=== PATIENT | female | born 1945 | race Caucasian/White ===

== ENCOUNTER → 2016-11-03 | Outpatient (CLI) | payer MEDICARE, OTHER ==
[~2016-11-03] MED LIST: ALBUTEROL SULFATE 2.5 MG/3 ML VIAL NEB ONE
== END | disposition home or self-care (01) ==
LOC: RESP 09:40
PROVIDERS: ATTEND Family Medicine
DX: J45.20 Mild intermittent asthma, uncomplicated (principal)
CPT/HCPCS: 94060; J7611

== ENCOUNTER → 2016-11-06 | Outpatient (CLI) | payer MEDICARE, OTHER | END | disposition home or self-care (01) | LOC: GMAB 14:34 | PROVIDERS: ATTEND Family Medicine | DX: J45.22 Mild intermittent asthma with status asthmaticus (principal) ==

== ENCOUNTER → 2016-12-26 | Outpatient (CLI) | payer MEDICARE, OTHER | END | disposition home or self-care (01) | LOC: GMAB 10:37 | PROVIDERS: ATTEND Family Medicine | DX: I10 Essential (primary) hypertension (principal) ==

== ENCOUNTER 2017-01-24 05:27 | Day surgery (SDC) | payer MEDICARE, OTHER ==
[2017-01-24] MEDS ORDERED: LACTATED RINGERS 1,000 ML ONE (07:15)
--- NOTE | 2017-01-24 08:46 | OP ---
DATE OF PROCEDURE: 01/24/17 PREOPERATIVE DIAGNOSIS: 1. Abnormal barium swallow with retention of barium pill. 2. Dysphagia. 3. Gastroesophageal reflux status post Gordy fundoplication. POSTOPERATIVE DIAGNOSIS: 1. Aborted EGD to the upper esophageal sphincter due to laryngeal spasm. PROCEDURE: 1. Esophagogastroduodenoscopy. SURGEON: Agustín Valenzuela MD. ANESTHESIA: MAC. PROCEDURE: Informed consent was obtained prior to sedation. The preprocedure cardiopulmonary assessment was satisfactory. The patient was placed in the left lateral decubitus and was sedated by the Anesthesia Team. The tip of the Olympus gastroendoscope was inserted in the oropharynx and guided with intent to pass through the cricopharyngeus. The scope was advanced into the upper esophageal sphincter. This was not transversed due to laryngeal spasm. The scope was then withdrawn from the patient at this time. Examination of the epiglottis and upper airway showed evidence of erythema prior to scope insertion. The scope was withdrawn from the patient and lidocaine was administered for laryngeal spasm, which resolved successfully. At this time, the procedure was terminated. RECOMMENDATION: 1. Avoid all tobacco products. 2. Followup with Dr. White. 3. Refer to pulmonary for medical optimization of asthma. 4. Consider further studies once cleared by pulmonary after propr medical optimization. 5. Followup with me in 4 to 6 weeks. #[id number] #[id number] [facility]
[2017-01-24 09:18] VITALS: BP 112/74; TEMP 98.6; O2SAT 95
[2017-01-24] MEDS ORDERED: PROPOFOL 200 MG/20 ML VIAL IV ONE (12:00)
== END 2017-01-24 09:00 | disposition home or self-care (01) ==
LOC: AMB 05:27
DX: K21.9 Gastro-esophageal reflux disease without esophagitis (principal); J38.5 Laryngeal spasm; I10 Essential (primary) hypertension; J45.909 Unspecified asthma, uncomplicated; Z79.899 Other long term (current) drug therapy
CPT/HCPCS: 00740; 43235; J3490; J7120

== ENCOUNTER → 2017-04-09 | Outpatient (CLI) | payer MEDICARE, OTHER | LOC: LAB.O 15:05 | DX: J45.909 Unspecified asthma, uncomplicated (principal); R05 Cough; Z01.811 Encounter for preprocedural respiratory examination ==

== ENCOUNTER → 2018-01-02 | Outpatient (CLI) | payer MEDICARE, OTHER | LOC: GMAB 10:22 | PROVIDERS: ATTEND Family Medicine | DX: D50.9 Iron deficiency anemia, unspecified (principal); E53.8 Deficiency of other specified B group vitamins; I10 Essential (primary) hypertension ==

== ENCOUNTER 2018-01-20 20:55 | Emergency (ER) | payer MEDICARE, OTHER ==
[2018-01-20 21:23] VITALS: O2SAT 98
--- NOTE | 2018-01-20 21:31 | ED.PDOC ---
History of Present Illness - General Chief Complaint: Bite: Animal/Insect/Human Stated Complaint: dog bite Time Seen by Provider: 01/20/18 21:17 Source: patient Exam Limitations: no limitations - History of Present Illness Initial Comments: Sneha Vargas 73 y/o female stated that her neighbors dog jumped over her fence while she was on her backyard tried to run on seeing the dog but was chased and bitten on her right leg with skin laceration.She was wearing long pants.Animal control went to look for the dog after incident. Timing/Duration: just prior to arrival Severity: moderate Location: extremities - right leg Improving Factors: nothing Worsening Factors: movement Associated Symptoms: denies symptoms, other - see hpi Allergies/Adverse Reactions: Allergies NO KNOWN ALLERGY Allergy (Verified 08/25/13 15:58) Home Medications: Ambulatory Orders Olmesartan Medoxomil [Benicar] 40 mg PO DAILY 06/22/14 Clonidine HCl 01/24/17 DULoxetine HCL [Cymbalta] 20 mg PO 01/24/17 Amoxicillin & Pot Clavulanate [Augmentin Tab] 500 mg PO BID #20 tablet 01/20/18 Amoxicillin [Amoxil] 500 mg PO BID #20 cap 01/20/18 Rivastigmine 9.5MG/24Hr Patch [Exelon 9.5mg/24hr Patch] 01/20/18 Review of Systems - Review of Systems Constitutional: States: no symptoms reported EENTM: States: no symptoms reported Respiratory: States: no symptoms reported Cardiology: States: no symptoms reported Skin: States: see HPI All other Systems: Reviewed and Negative, No Change from Baseline Past Medical History (General) - Patient Medical History Hx Seizures: No Hx Stroke: No Hx Asthma: No Hx of COPD: No Hx Cardiac Disorders: No Hx Congestive Heart Failure: No Hx Pacemaker: No Hx Hypertension: Yes Hx Diabetes: No Hx Cancer: No Hx Hepatitis C: No Hx MRSA: No Surgical History: other - hernia repair - Vaccination History Hx Tetanus, Diphtheria Vaccination: No Hx Influenza Vaccination: No Hx Pneumococcal Vaccination: No - Social History Hx Tobacco Use: No Hx Chewing Tobacco Use: No Hx Alcohol Use: No Hx Substance Use: No Hx Substance Use Treatment: No Hx Depression: No Hx Physical Abuse: No Hx Emotional Abuse: No Hx Suspected Abuse: No - Female History Patient : No Family Medical History - Family History Mother Family History: Unknown Living Status: Physical Exam - Physical Exam General Appearance: Alert, Comfortable, No apparent distress Eyes, Ears, Nose, Throat Exam: normal ENT inspection Neck: supple Cardiovascular/Chest: normal peripheral pulses, regular rate, rhythm, no murmur Respiratory: lungs clear, normal breath sounds Gastrointestinal/Abdominal: non tender, soft Back Exam: normal inspection Extremity: no pedal edema, no calf tenderness Neurologic: alert, oriented x 3 Skin Exam: warm/dry, normal color Skin Problem Location: lower extremities - right leg Skin Character: other - skin laceration Progress - Progress Progress: 01/20/18 21:33 Vital Signs - 8 hr 01/20/18 21:19 Temperature 97.8 F Pulse Rate [ 68 Right] Respiratory 18 Rate Blood Pressure 130/64 [Left Arm] O2 Sat by Pulse 98 Oximetry Departure - Departure Clinical Impression: Minor skin laceration Dog bite of right lower leg Qualifiers: Encounter type: initial encounter Qualified Code(s): S81.851A - Open bite, right lower leg, initial encounter; W54.0XXA - Bitten by dog, initial encounter Time of Disposition: 21:36 Disposition: Discharge to Home or Self Care Departure Forms: ED Discharge - Pt. Copy, Patient Portal Self Enrollment Instructions: DI for Animal Bites, DI for Dog Bite Referrals: Michael White MD [Primary Care Provider] - 1-2 Weeks Prescriptions: Amoxicillin [Amoxil] 500 mg PO BID #20 cap Amoxicillin & Pot Clavulanate [Augmentin Tab] 500 mg PO BID #20 tablet Home Medications: Ambulatory Orders Olmesartan Medoxomil [Benicar] 40 mg PO DAILY 06/22/14 Clonidine HCl 01/24/17 DULoxetine HCL [Cymbalta] 20 mg PO 01/24/17 Amoxicillin & Pot Clavulanate [Augmentin Tab] 500 mg PO BID #20 tablet 01/20/18 Amoxicillin [Amoxil] 500 mg PO BID #20 cap 01/20/18 Rivastigmine 9.5MG/24Hr Patch [Exelon 9.5mg/24hr Patch] 01/20/18 Additional Instructions: Return to ER as needed;Follow up with primary Md as needed
[2018-01-20] MEDS ORDERED: AMOXICILLIN & POT CLAVULANATE 875 MG TAB PO ONE (21:33)
[2018-01-20] MEDS ORDERED: TETANUS,DIPHTHERIA,PERTUSSIS 1 EA SYG IM ONE (21:33)
[2018-01-20] MEDS ORDERED: AMOXICILLIN 500 MG CAP PO ONE (21:34)
[2018-01-20] MEDS ORDERED: NEOMYCIN-BACITRACIN-POLYMYXIN 0.9 GM UD TOP ONE (21:44)
[2018-01-20 21:59] VITALS: BP 137/68; TEMP 97.2
== END 2018-01-20 21:58 | disposition home or self-care (01) ==
LOC: ER 20:55
DX: S81.851A Open bite, right lower leg, initial encounter (principal); I10 Essential (primary) hypertension; Z23 Encounter for immunization; W54.0XXA Bitten by dog, initial encounter; Y92.007 Garden or yard of unspecified non-institutional (private) residence as the place of occurrence of the external cause

== ENCOUNTER 2018-08-29 22:17 | Emergency (ER) | payer MEDICARE, OTHER ==
[2018-08-29] MEDS ORDERED: IPRATROPIUM/ALBUTEROL 3 ML VIAL NEB ONE (22:45)
[2018-08-29] MEDS ORDERED: diazePAM 2 MG TAB PO ONE (22:45)
--- NOTE | 2018-08-29 23:32 | ED.PDOC ---
History of Present Illness - General Chief Complaint: Blood Pressure Problem Stated Complaint: elevated blood pressure Time Seen by Provider: 08/29/18 22:19 Source: patient Exam Limitations: no limitations - History of Present Illness Initial Comments: the patient is a 73-year-old female presenting to the emergency room secondary to hypertension that essentially seems despite nightly for her. The patient has been taking clonidine 1 tablet a day almost every night due to blood pressure spike. No altered mental status. No fever. No nuchal rigidity. She just started taking labetalol today that was written for her by her public aid eligibility assistant. She reports a systolic blood pressure of around 200 checked at night. The time she arrived here her systolics were down into the 160s and then proceeded on down into the 130s. The patient was obviously very anxious.she has also recently had a little bit of cough and a little bit of shortness of breath. She does have some history of COPD versus asthma. She does have scattered wheezes currently. Timing/Duration: 1-3 hours Severity: moderate Improving Factors: nothing Worsening Factors: nothing Associated Symptoms: headaches Allergies/Adverse Reactions: Allergies NO KNOWN ALLERGY Allergy (Verified 08/25/13 15:58) Home Medications: Ambulatory Orders Olmesartan Medoxomil [Benicar] 40 mg PO DAILY 06/22/14 Clonidine HCl 01/24/17 DULoxetine HCL [Cymbalta] 20 mg PO 01/24/17 Amoxicillin & Pot Clavulanate [Augmentin Tab] 500 mg PO BID #20 tablet 01/20/18 Amoxicillin [Amoxil] 500 mg PO BID #20 cap 01/20/18 Rivastigmine 9.5MG/24Hr Patch [Exelon 9.5mg/24hr Patch] 01/20/18 Review of Systems - Review of Systems Constitutional: States: no symptoms reported EENTM: States: no symptoms reported Respiratory: States: cough, short of breath Cardiology: States: no symptoms reported Gastrointestinal/Abdominal: States: no symptoms reported Genitourinary: States: no symptoms reported Musculoskeletal: States: no symptoms reported Skin: States: no symptoms reported Neurological: States: headache Endocrine: States: no symptoms reported All other Systems: No Change from Baseline Past Medical History (General) - Patient Medical History Hx Seizures: No Hx Stroke: No Hx Asthma: No Hx of COPD: No Hx Cardiac Disorders: No Hx Congestive Heart Failure: No Hx Pacemaker: No Hx Hypertension: Yes Hx Diabetes: No Hx Cancer: No Hx Hepatitis C: No Hx MRSA: No Surgical History: Hysterectomy - Vaccination History Hx Tetanus, Diphtheria Vaccination: Yes Hx Influenza Vaccination: No Hx Pneumococcal Vaccination: Yes - Social History Hx Tobacco Use: No Hx Chewing Tobacco Use: No Hx Alcohol Use: Yes - social Hx Substance Use: No Hx Substance Use Treatment: No Hx Depression: No Hx Physical Abuse: No Hx Emotional Abuse: No Hx Suspected Abuse: No - Female History Patient : No Family Medical History - Family History Mother Family History: Unknown Living Status: Physical Exam - Physical Exam General Appearance: Alert, Anxious, No apparent distress Eye Exam: bilateral normal Ears, Nose, Throat: hearing grossly normal, normal ENT inspection, normal pharynx Neck: full range of motion, supple Respiratory: no respiratory distress, no accessory muscle use, wheezing - cattered wheezes Cardiovascular/Chest: normal peripheral pulses, regular rate, rhythm, no edema Peripheral Pulses: radial,right: 2+, radial,left: 2+ Gastrointestinal/Abdominal: non tender, soft Rectal Exam: deferred Back Exam: normal inspection, no CVA tenderness, no vertebral tenderness Extremity: normal range of motion, non-tender, normal inspection, no pedal edema , normal capillary refill 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 It is possible the clonidine that she has been taking each night is causing her to have some rebound hypertension. She has just started taking the labetalol and she does need to continue with that twice daily, and hopefully wean off the clonidine. Additionally the patient does appear to have some reactive airway issues currently. She should get her proventil prescription filled that she already has and use it as needed. Blood pressures have come down and her headache is improving. She needs to follow back up with her primary care doctor early next week. ER warnings were given. Departure - Departure Clinical Impression: Uncontrolled hypertension Reactive airway disease Qualifiers: Asthma severity: mild Asthma persistence: intermittent Asthma complication type : with acute exacerbation Qualified Code(s): J45.21 - Mild intermittent asthma with (acute) exacerbation Disposition: Discharge to Home or Self Care Condition: Fair Departure Forms: ED Discharge - Pt. Copy, Patient Portal Self Enrollment Instructions: DI for High Blood Pressure, Asthma, Adult (DC) Diet: regular diet Activity: increase activity as tolerated Referrals: Michael White MD [Primary Care Provider] - 1-5 Days Home Medications: Ambulatory Orders Olmesartan Medoxomil [Benicar] 40 mg PO DAILY 06/22/14 Clonidine HCl 01/24/17 DULoxetine HCL [Cymbalta] 20 mg PO 01/24/17 Amoxicillin & Pot Clavulanate [Augmentin Tab] 500 mg PO BID #20 tablet 01/20/18 Amoxicillin [Amoxil] 500 mg PO BID #20 cap 01/20/18 Rivastigmine 9.5MG/24Hr Patch [Exelon 9.5mg/24hr Patch] 01/20/18 Additional Instructions: the patient is a 73-year-old female presenting to the emergency room secondary to nightly hypertension which corresponded tonight with a moderate headache. It is possible the clonidine that she has been taking each night is causing her to have some rebound hypertension. She has just started taking the labetalol and she does need to continue with that twice daily, and hopefully wean off the clonidine. Additionally the patient does appear to have some reactive airway issues currently. She should get her proventil prescription filled that she already has and use it as needed. Blood pressures have come down and her headache is improving. She needs to follow back up with her primary care doctor early next week. ER warnings were given.
[2018-08-30 00:43] VITALS: BP 147/58; TEMP 97.8; O2SAT 96
== END 2018-08-29 23:40 | disposition home or self-care (01) ==
LOC: ER 22:17
DX: I10 Essential (primary) hypertension (principal); J45.21 Mild intermittent asthma with (acute) exacerbation
CPT/HCPCS: 94640; J7620

== ENCOUNTER → 2018-10-09 | Outpatient (CLI) | payer MEDICARE, OTHER | LOC: YCFC.O 11:49 | PROVIDERS: ATTEND Family Medicine | DX: Z00.00 Encounter for general adult medical examination without abnormal findings (principal); R51 Headache; I10 Essential (primary) hypertension ==

== ENCOUNTER → 2018-10-14 | Outpatient (CLI) | payer MEDICARE, OTHER ==
--- NOTE | 2018-10-14 14:50 | MRI ---
EXAM DESCRIPTION: Brain w/wo Contrast: Magnetic Resonance Imaging. CLINICAL HISTORY: 73 years Female UNSPECIFIED DEMENTIA WITHOUT BEHAVIORAL DISTURBANCE COMPARISON: MRI scan of the brain without contrast 12/17/2015. TECHNIQUE: Multiplanar, high-field MRI, multiple conventional sequences, without and with gadolinium IV contrast. No adverse reactions. Multiple axial diffusion sequences. FINDINGS: Bilateral confluent hyperintense FLAIR and T2-weighted signal in the periventricular white matter. Slightly more in the left cerebrum. Multifocal hyperintense FLAIR and T2-weighted signal in the slightly more on the left than the right. Rios-white matter junctions of the cerebral hemispheres. These lesions are not associated with hemorrhage, abnormal contrast enhancement, cerebral edema, or diffusion restriction. Normal signal in the bilateral basal ganglia. No hemorrhage, no cerebral edema, no diffusion restriction. Normal contrast enhancement. Normal signal in the brainstem. Right cerebellar hemisphere larger than the left. No hemorrhage, no cerebral edema, no mass-effect. Normal contrast enhancement. Large arachnoid cysts and or cisterna magna, posterior fossa left more than right. No contrast enhancement. Concordance of the diffusion and non-diffusion sequences with no evidence of acute or subacute infarction. Cortical sulci, ventricles, and other CSF spaces, and the subdural spaces are normally configured for patients age.. No effacement or displacement. No midline shift. No extra-axial hemorrhage. Normal contrast enhancement. Normal flow signal void in the major vessels of the [place], and the venous sinuses. Arachnoid villi in the bilateral transverse sinuses. IACs are symmetric bilaterally. Fluid signal in some of the left mastoid air cells. No mass effect in the bilateral cerebellopontine angles. Normal contrast enhancement. Facial structures are partially obscured by metallic susceptibility artifact from maxillary dental hardware left more than right. Pituitary gland occupies most of the sella. Normal contrast enhancement. Base of the cerebellar tonsils is above the foramen magnum. Difficult to evaluate the paranasal sinuses. Due to artifact described above. The bony calvarium is intact. IMPRESSION: 1. No intra-axial or extra-axial hemorrhage. No abnormal contrast enhancement. Confluent white matter lesions in the periventricular regions left more than right and multiple small foci of similar signal in the subcortical white matter left more than right. This may have slightly progressed since the prior study. Not associated with hemorrhage, mass effect, cerebral edema, abnormal contrast enhancement, or diffusion restriction. 2. No diffusion restriction elsewhere in the brain. No evidence of acute or subacute infarction or significant ischemia. Stable since the prior study. 3. Cisterna magna and arachnoid cysts in the posterior fossa in the midline into the left of midline with the left cerebellar hemisphere smaller than the right. No abnormal contrast enhancement. Stable since the prior study. 4. Mild mastoiditis on the left. Electronically signed by: Marcos Kemp MD 10/14/2018 2:49 PM [facility]
== END ==
LOC: MRI 08:42
PROVIDERS: ATTEND Family Medicine
DX: F03.90 Unspecified dementia, unspecified severity, without behavioral disturbance, psychotic disturbance, mood disturbance, and anxiety (principal); H70.92 Unspecified mastoiditis, left ear; G93.0 Cerebral cysts

== ENCOUNTER → 2018-12-08 | Outpatient (CLI) | payer MEDICARE, OTHER | LOC: SL 19:44 | PROVIDERS: ATTEND Family Medicine | DX: G47.30 Sleep apnea, unspecified (principal) ==

== ENCOUNTER → 2019-01-06 | Outpatient (CLI) | payer MEDICARE, OTHER | LOC: GMAE 10:28 | PROVIDERS: ATTEND Family Medicine | DX: I10 Essential (primary) hypertension (principal) ==

== ENCOUNTER → 2019-05-14 | Outpatient (CLI) | payer MEDICARE, OTHER | LOC: GMAE 10:25 | PROVIDERS: ATTEND Family Medicine | DX: R25.2 Cramp and spasm (principal); E78.2 Mixed hyperlipidemia; I11.9 Hypertensive heart disease without heart failure ==

== ENCOUNTER 2019-10-21 19:03 | Emergency (ER) | payer MEDICARE, OTHER ==
[2019-10-21] MEDS ORDERED: SODIUM CHLORIDE 0.9% (FLUSH) 10 ML SYG IV PRN (19:21)
--- NOTE | 2019-10-21 19:49 | RAD ---
EXAM DESCRIPTION: XR Chest,1 View CLINICAL HISTORY: left arm pain TECHNIQUE: Single frontal view of the chest is submitted. COMPARISON: 06/22/2014 FINDINGS: Heart: The cardiothoracic silhouette is within normal limits. Lungs: Coarsened interstitial markings and right basilar pleural parenchymal scar again demonstrated. No focal consolidation. Mediastinum: Thoracic aortic atherosclerosis. Pleura: No appreciable effusion. No pneumothorax. Bones: Multilevel degenerative changes. Moderate degenerative changes at the right glenohumeral articulation. Upper abdomen: Unremarkable IMPRESSION: No acute disease. Electronically signed by: Amarjit Melara MD 10/21/2019 7:47 PM [employer]
[2019-10-21] MEDS ORDERED: METOPROLOL TARTRATE INJ 5 MG/5 ML VIAL IV ONE (20:12)
--- NOTE | 2019-10-21 20:26 | ED.PDOC ---
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 Additionally she complained of her face being bright red and she thought her blood pressure was up. She and her measured her blood pressure and it was systolic 210 over diastolic 115. Patient took an extra Benicar and came to the ED. The pain in his shoulder was stabbing in nature, continuous, 10 out of 10, not associated with any numbness. Nothing seems to make it better or worse. Timing/Duration: 1-3 hours Severity: severe Improving Factors: nothing Worsening Factors: nothing Allergies/Adverse Reactions: Allergies NO KNOWN ALLERGY Allergy (Verified 08/25/13 15:58) Home Medications: Ambulatory Orders Olmesartan Medoxomil [Benicar] 40 mg PO DAILY 06/22/14 Clonidine HCl 01/24/17 DULoxetine HCL [Cymbalta] 20 mg PO 01/24/17 Amoxicillin & Pot Clavulanate [Augmentin Tab] 500 mg PO BID #20 tablet 01/20/18 Amoxicillin [Amoxil] 500 mg PO BID #20 cap 01/20/18 Rivastigmine 9.5MG/24Hr Patch [Exelon 9.5mg/24hr Patch] 01/20/18 Review of Systems - Review of Systems Constitutional: States: no symptoms reported, see HPI EENTM: States: no symptoms reported Respiratory: States: no symptoms reported Cardiology: States: no symptoms reported Gastrointestinal/Abdominal: States: no symptoms reported Genitourinary: States: no symptoms reported Musculoskeletal: States: back pain, muscle pain, neck pain Skin: States: no symptoms reported Neurological: States: no symptoms reported Endocrine: States: no symptoms reported Hematologic/Lymphatic: States: no symptoms reported All other Systems: Reviewed and Negative Past Medical History (General) - Patient Medical History Hx Seizures: No Hx Stroke: Yes - TIA Hx Dementia: No Hx Asthma: No Hx of COPD: No Hx Cardiac Disorders: No Hx Congestive Heart Failure: No Hx Pacemaker: No Hx Hypertension: Yes Hx Thyroid Disease: No Hx Diabetes: No Hx Gastroesophageal Reflux: No Hx Renal Disease: No Hx Cancer: No Hx of HIV: No Hx Hepatitis C: No Hx MRSA: No Surgical History: appendectomy, other - Vaccination History Hx Tetanus, Diphtheria Vaccination: Yes Hx Influenza Vaccination: No Hx Pneumococcal Vaccination: Yes - Social History Hx Tobacco Use: No Hx Chewing Tobacco Use: No Hx Alcohol Use: Yes Hx Substance Use: No Hx Substance Use Treatment: No Hx Depression: No Feels Threatened In Home Enviroment: No Feels Threatened In a Relationship: No Hx Physical Abuse: No Hx Emotional Abuse: No Hx Suspected Abuse: No - Female History Patient is a Female of Child Bearing Age (10 -59 yrs old): No Patient : No Family Medical History - Family History Mother Family History: Unknown Living Status: Physical Exam - Physical Exam General Appearance: Alert, Anxious, Well Developed, Well Groomed, Well Hydrated, Well Nourished Eye Exam: bilateral normal, bilateral abnormal EOM Ears, Nose, Throat: hearing grossly normal, normal ENT inspection, normal pharynx Neck: non-tender, full range of motion, supple, tender lateral, other - Left trapezius tenderness palpation with muscle spasm. 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 10/21/19 21:09 Patient's blood pressure came down partially on its own just after arrival. Patient was given Lopressor 5 mg IV that brought her blood pressure systolic down to 160. Patient's pain had markedly improved by the time she arrived here and was completely gone as her blood pressure more normalized. I think the likelihood of dissection is small due to improvement of the pain when her blood pressure was still elevated in the systolics of 200. I think there is a component of hypertensive urgency with this shoulder pain. Additionally patient does have some muscle spasm in that shoulder and it may be related to some cervical radiculopathy. Plan on discharge home with follow-up with PCP for further work-up to consider MRI/MRA if indicated. I discussed this plan of care with the patient, who is a retired RN and she voices understanding and agreement. Her also is in agreement with the plan of care. Saurabh Motley M.D. #[id number] - Results/Orders Results/Orders: EXAM DESCRIPTION: XR Chest,1 View CLINICAL HISTORY: left arm pain TECHNIQUE: Single frontal view of the chest is submitted. COMPARISON: 06/22/2014 FINDINGS: Heart: The cardiothoracic silhouette is within normal limits. Lungs: Coarsened interstitial markings and right basilar pleural parenchymal scar again demonstrated. No focal consolidation. Mediastinum: Thoracic aortic atherosclerosis. Pleura: No appreciable effusion. No pneumothorax. Bones: Multilevel degenerative changes. Moderate degenerative changes at the right glenohumeral articulation. Upper abdomen: Unremarkable IMPRESSION: No acute disease. Electronically signed by: Amarjit Melara MD 10/21/2019 7:47 PM CLINICAL DATA ABSTRACTOR 10/21/19 19:21 Sodium Chloride 0.9% (Flush) [Saline Flush Syringe] 3 ml IV PRN PRN 10/21/19 19:22 IV Care:Saline Lock per Protoc QSHIFT Telemetry ONCE Oxygen Delivery Assessment: QSHIFT Oxygen Stat Pulse Oximetry Assessment DAILY 10/21/19 19:30 EKG STAT 10/22/19 09:00 Pulse Ox Daily Laboratory Results - last 24 hr 10/21/19 10/21/19 19:35 19:35 WBC 7.5 RBC 4.16 L Hgb 12.7 Hct 36.6 MCV 88.0 MCH 30.5 MCHC 34.7 RDW 14.0 Plt Count 228 MPV 8.7 Absolute Neuts (auto) Not Reportable Absolute Lymphs (auto) Not Reportable Absolute Monos (auto) Not Reportable Absolute Eos (auto) Not Reportable Neutrophils % Not Reportable Neutrophils % (Manual) 62.0 Lymphocytes % Not Reportable Lymphocytes % (Manual) 27.0 Monocytes % Not Reportable Monocytes % (Manual) 4.0 Eosinophils % Not Reportable Basophils % Not Reportable Band Neutrophils 6.0 H Basophils 1.0 Platelet Estimate Normal Normal RBC Morphology Normal rbc morph PT 9.4 INR < 1.00 PTT (SP) 22.9 Sodium 140 Potassium 3.5 L Chloride 103 Carbon Dioxide 28 Anion Gap 12.5 BUN 25 H Creatinine 0.82 BUN/Creatinine Ratio 30.5 H Random Glucose 93 Serum Osmolality 283.5 Calcium 10.8 H Magnesium 2.7 H Creatine Kinase 38 CK-MB (CK-2) 1.2 CK-MB (CK-2) % Not Reportable Troponin I < 0.02 Departure - Departure Clinical Impression: Accelerated hypertension, Cervical radiculopathy Time of Disposition: 21:13 Disposition: Discharge to Home or Self Care Condition: Good Departure Forms: ED Discharge - Pt. Copy, Patient Portal Self Enrollment Instructions: DI for High Blood Pressure, Radiculopathy (DC) Referrals: NOLBERTO CHOUDHARY MD [Primary Care Provider] - 1-2 Days Home Medications: Ambulatory Orders Olmesartan Medoxomil [Benicar] 40 mg PO DAILY 06/22/14 Clonidine HCl 01/24/17 DULoxetine HCL [Cymbalta] 20 mg PO 01/24/17 Amoxicillin & Pot Clavulanate [Augmentin Tab] 500 mg PO BID #20 tablet 01/20/18 Amoxicillin [Amoxil] 500 mg PO BID #20 cap 01/20/18 Rivastigmine 9.5MG/24Hr Patch [Exelon 9.5mg/24hr Patch] 01/20/18
[2019-10-21 21:44] VITALS: BP 177/107; TEMP 98.4; O2SAT 98
== END 2019-10-21 21:43 | disposition home or self-care (01) ==
LOC: ER 19:03
DX: I10 Essential (primary) hypertension (principal); M54.12 Radiculopathy, cervical region; Z86.73 Personal history of transient ischemic attack (TIA), and cerebral infarction without residual deficits; Z79.899 Other long term (current) drug therapy

== ENCOUNTER → 2019-10-22 | Outpatient (CLI) | payer MEDICARE, OTHER ==
--- NOTE | 2019-10-22 13:50 | RAD ---
EXAM DESCRIPTION: Shoulder,Left 2 or More Views CLINICAL HISTORY: PAIN IN LEFT SHOULDER COMPARISON: None Available. TECHNIQUE: Two views of the left shoulder. FINDINGS: The bones are osteopenic with modestly degenerative AC joint. Glenohumeral articulation is more normal in appearance. The chest wall and mid and upper lung field are normal. Clavicle appears intact. IMPRESSION: 1. AC joint arthropathy with mild lateral downward tilting of the acromion and osteopenia. Electronically signed by: Micah Jerome MD 10/22/2019 1:49 PM [facility]
--- NOTE | 2019-10-22 13:52 | RAD ---
EXAM DESCRIPTION: Cervical Spine, 2-3 Views CLINICAL HISTORY: 74 years Female, CERVICALGIA NECK PAIN COMPARISON: None. FINDINGS: Three radiographic views of the cervical spine demonstrate vertebral bodies well to the upper C7 level. The odontoid appears intact. Bilateral moderately extensive facet arthropathy is present. Soft tissue dissection in the left side of the neck anterior to the C-spine is noted. Degenerative disc narrowing and anterior spurring modest at C5-6 and C6-7 is apparent. The odontoid appears intact. IMPRESSION: Normally aligned modestly degenerative cervical spine at C5-6 and C6-7 with diffuse modest facet arthropathy. Electronically signed by: Micah Jerome MD 10/22/2019 1:50 PM [facility]
== END ==
LOC: RAD 13:13
PROVIDERS: ATTEND Family Medicine
DX: M47.892 Other spondylosis, cervical region (principal); M19.019 Primary osteoarthritis, unspecified shoulder; M85.812 Other specified disorders of bone density and structure, left shoulder

== ENCOUNTER → 2019-10-28 | Outpatient (CLI) | payer MEDICARE, OTHER ==
--- NOTE | 2019-10-29 14:32 | MRI ---
EXAM DESCRIPTION: Cervical Spine: MRI. CLINICAL HISTORY: 74 years Female RADICULOPATHY CERVICAL REGION COMPARISON: Cervical spine radiographs October 22. Brain MRI scan September 2018. TECHNIQUE: Multiplanar, high-field MRI, multiple sequences, non-contrast Cervical spine. FINDINGS: C3-C4: Minimal disc desiccation and disc space loss. Posterior midline tiny bulge. Minimal thickening of the posterior flavum ligaments. Moderate canal narrowing. Mild to moderate neural bilateral foraminal narrowing. C4-C5: Disc desiccation with disc space preserved. Right uncinate spur. Hypertrophy of the facet joint. Right neural foraminal stenosis. No disc bulge. Canal is patent. Minimal left facet hypertrophy and neural foraminal narrowing. C5-C6: Advanced spondylosis and moderate disc space loss. Anterior bulge with endplate ridging. Right uncinate spur. Posterior disc osteophyte bulge to the right of midline encroaching on the right ventral cord and impinging the right C6 nerve. Right neural foraminal stenosis. Right paracentral AP moderate canal stenosis. Mild bilateral facet arthrosis. C6-C7: Disc desiccation moderate disc space loss and endplate erosions. Anterior disc bulging anterior endplate ridging. No posterior disc bulge. Minimal bilateral facet arthrosis. Posterior flavum ligament thickening. Moderate canal narrowing. Moderate to severe left neural foraminal narrowing. C7-T1: Disc desiccation and 2 millims grade 1 anterolisthesis. No disc bulging. Disc desiccation and disc space maintained. Canal and bilateral foramina are patent. Minimal arthrosis bilateral facets. Normal signal in the C2-3 disc and T1-T2 disc with no bulging. Disc spaces preserved. Canal and neural foramina are patent. Facet joints are unremarkable. Spinal alignment C4-C6 kyphosis.. No cord compression or cord edema. Atlantoaxial joint mild arthrosis and joint effusion.. Base of the cerebellar tonsils is above the foramen magnum. Persistent cisterna magna to the left of midline. Paravertebral soft tissues are unremarkable. Vertebral bodies are not compressed at any level. Otherwise normal marrow signal in the remaining vertebral bodies and the posterior elements. IMPRESSION: 1. Multiple levels of endplate spondylosis and posterior flavum ligament thickening. Also uncinate spurs at several levels. 2. Right neural foraminal stenosis at C4-C5 from uncinate and facet spurs. Correlate for right C5 radiculopathy. 3. Right uncinate spur and right posterior disc and endplate osteophyte bulge at C5-6. Right paracentral canal stenosis. Right neural foraminal stenosis. Correlate for right C6 radiculopathy. 4. Left C6-C7 uncinate spur and left facet arthrosis with severe left foraminal narrowing. Correlate for left C7 radiculopathy. 5. Cisterna magna in the left posterior fossa, arachnoid cysts, or left cerebellar atrophy. Compare to prior brain MRI scan. Electronically signed by: Marcos Kemp MD 10/29/2019 2:30 PM [facility]
== END ==
LOC: MRI 11:00
PROVIDERS: ATTEND Family Medicine
DX: M54.12 Radiculopathy, cervical region (principal); M47.892 Other spondylosis, cervical region; M48.02 Spinal stenosis, cervical region; M25.78 Osteophyte, vertebrae; G93.9 Disorder of brain, unspecified

== ENCOUNTER → 2019-10-30 | Outpatient (CLI) | payer MEDICARE, OTHER | LOC: YCFC.O 15:29 | PROVIDERS: ATTEND Family Medicine | DX: I10 Essential (primary) hypertension (principal) ==

== ENCOUNTER → 2020-03-17 | Outpatient (CLI) | payer MEDICARE, OTHER | LOC: LAB.O 08:48 | PROVIDERS: ATTEND Physician Assistant | DX: E78.2 Mixed hyperlipidemia (principal) ==

== ENCOUNTER → 2020-05-06 | Outpatient (CLI) | payer MEDICARE, OTHER | LOC: LAB.O 12:19 | PROVIDERS: ATTEND Psychiatry & Neurology Neurology | DX: R10.9 Unspecified abdominal pain (principal); R79.89 Other specified abnormal findings of blood chemistry; G30.9 Alzheimer's disease, unspecified; R79.9 Abnormal finding of blood chemistry, unspecified; D64.9 Anemia, unspecified; I67.1 Cerebral aneurysm, nonruptured; M45.9 Ankylosing spondylitis of unspecified sites in spine; I67.9 Cerebrovascular disease, unspecified; I82.91 Chronic embolism and thrombosis of unspecified vein; N18.9 Chronic kidney disease, unspecified; G89.4 Chronic pain syndrome; K50.90 Crohn's disease, unspecified, without complications; M15.0 Primary generalized (osteo)arthritis; F01.50 Vascular dementia, unspecified severity, without behavioral disturbance, psychotic disturbance, mood disturbance, and anxiety; G37.9 Demyelinating disease of central nervous system, unspecified; M33.90 Dermatopolymyositis, unspecified, organ involvement unspecified; F81.9 Developmental disorder of scholastic skills, unspecified; E11.9 Type 2 diabetes mellitus without complications; R53.83 Other fatigue; R50.9 Fever, unspecified; M79.7 Fibromyalgia; L81.2 Freckles; M10.9 Gout, unspecified; G44.1 Vascular headache, not elsewhere classified; I10 Essential (primary) hypertension; E03.9 Hypothyroidism, unspecified; G60.3 Idiopathic progressive neuropathy; M51.16 Intervertebral disc disorders with radiculopathy, lumbar region; R27.9 Unspecified lack of coordination; Z79.899 Other long term (current) drug therapy; R41.3 Other amnesia; M35.1 Other overlap syndromes; G35 Multiple sclerosis; G70.00 Myasthenia gravis without (acute) exacerbation; G04.89 Other myelitis; M54.81 Occipital neuralgia; H46.9 Unspecified optic neuritis; M35.3 Polymyalgia rheumatica; M33.22 Polymyositis with myopathy; G61.81 Chronic inflammatory demyelinating polyneuritis; I73.00 Raynaud's syndrome without gangrene; G25.89 Other specified extrapyramidal and movement disorders; M06.9 Rheumatoid arthritis, unspecified; D86.9 Sarcoidosis, unspecified; M32.10 Systemic lupus erythematosus, organ or system involvement unspecified; M31.6 Other giant cell arteritis ==

== ENCOUNTER → 2020-05-18 | Outpatient (CLI) | payer MEDICARE, OTHER ==
--- NOTE | 2020-05-18 13:23 | MRI ---
EXAM DESCRIPTION: MRA Head and/or Neck CLINICAL HISTORY: 75 years Female, VASCULAR DEMENTIA WITHOUT BEHAVIORAL DISTURBANCE COMPARISON: None. TECHNIQUE: MRA of the brain performed using 3-D [id number] imaging and MIP reformatted images. FINDINGS: Posteriorly a dominant left vertebral artery continues as a tortuous basilar artery to the right of midline. The small nondominant right vertebral artery terminates as the right posterior inferior cerebellar artery. Basilar artery tip terminates as the right posterior cerebral artery which is large and widely patent. The left posterior cerebral artery arises from a large posterior communicating artery on the left as well as a modest communicating vessel from the basilar tip. Satisfactory filling posteriorly is noted. Anteriorly, both internal carotid arteries and petrous portion of each carotid vessel and carotid siphon is widely patent. Normal bifurcation of each supraclinoid internal carotid artery with satisfactory filling of both anterior and both middle cerebral arteries noted. No vascular malformation or large aneurysm or occlusion proximally is noted. Normal trifurcation of each middle cerebral artery noted without occlusive disease or high-grade stenosis. IMPRESSION: Essentially normal MRA of the brain without contrast enhancement with anatomic variants as noted above. Electronically signed by: Micah Jerome MD 05/18/2020 1:21 PM CDT
--- NOTE | 2020-05-18 13:28 | MRI ---
EXAM DESCRIPTION: Brain w/o Contrast CLINICAL HISTORY: VASCULAR DEMENTIA COMPARISON: None available TECHNIQUE: Multiplanar multisequence noncontrast MRI of the brain FINDINGS: Normal appearing ventricular system for age with very little atrophic change noted. Slightly prominent cisterna magna in the posterior inferior cerebellum noted. Ventricular system is within the upper range of normal for age consistent with mild age-appropriate atrophic changes. No evidence of restricted diffusion to suggest acute or subacute ischemia noted. Gradient echo imaging shows no evidence of susceptibility artifact to suggest previous intracranial hemorrhage. Moderate patchy and coalescent periventricular and subcortical white matter disease both cerebral hemispheres, slightly worse on the left is present consistent with age-related microvascular disease a pattern typical of demyelinating process is not apparent. No extra-axial fluid collections or mass effect noted. The sellar and suprasellar region as well as brainstem appear unremarkable. Slight thinning but intact corpus callosum noted. Normal flow voids in the major intracranial vascular structures noted. Third and fourth ventricles are midline. IMPRESSION: 1. Mild age-appropriate atrophic changes and ventricular prominence within the limits of normal for age with moderate periventricular and subcortical white matter changes of aging and microvascular disease, slightly worse in the trigone region adjacent to the left lateral ventricle. 2. No acute intracranial process or evidence of acute ischemia or previous intracranial hemorrhage noted. 3. No mass effect or extra-axial fluid collections or other abnormalities noted. 4. Incidental note of focal inflammatory changes left mastoid process suggesting an element of left-sided mastoiditis. Electronically signed by: Micah Jerome MD 05/18/2020 1:26 PM CDT
== END | disposition home or self-care (01) ==
LOC: MRI 07:33
PROVIDERS: ATTEND Psychiatry & Neurology Neurology
DX: F01.50 Vascular dementia, unspecified severity, without behavioral disturbance, psychotic disturbance, mood disturbance, and anxiety (principal); G30.1 Alzheimer's disease with late onset

== ENCOUNTER → 2020-05-19 | Outpatient (CLI) | payer MEDICARE, OTHER ==
--- NOTE | 2020-05-20 10:56 | MRI ---
EXAM DESCRIPTION: MRA Head and/or Neck CLINICAL HISTORY: ALZHEIMER WITH LATE ONSET COMPARISON: MRI scan of the brain and MRA of the intracranial vessels on May 18. TECHNIQUE: 2D [id number] thin-section axial acquisitions from the lower neck through the base of the skull. Also 3-D [id number] axial reconstructions with MIP images. Before and after gadolinium IV contrast, 1 mL per 5 kg body weight. MIP reconstructions. No adverse reactions. FINDINGS: Left common carotid arteries showing no significant narrowing from the aortic arch origin to the bifurcation. Left ICA also patent from the bifurcation to the transverse canal at the skull base. Right common carotid is patent from the right innominate artery origin. The bifurcation. Right ICA also patent from the bifurcation to the transverse canal at the skull base. Proximal right external carotid artery is negative. No stenosis, no aneurysm, no mass effect, no vasculitis. Bilateral vertebral artery origins are not well demonstrated in the left vertebral artery is dominant compared to the right. No significant narrowing from the thoracic inlet, through the cervical intervertebral foramen to the junction to form the basilar artery. No stenosis, no aneurysm, no mass effect, no vasculitis. IMPRESSION: Normal MRA of the carotid and vertebral system in the neck and skull base, without and with gadolinium IV contrast. Electronically signed by: Marcos Kemp MD 05/20/2020 10:55 AM CDT
== END | disposition home or self-care (01) ==
LOC: MRI 07:34
PROVIDERS: ATTEND Psychiatry & Neurology Neurology
DX: G30.1 Alzheimer's disease with late onset (principal); F01.50 Vascular dementia, unspecified severity, without behavioral disturbance, psychotic disturbance, mood disturbance, and anxiety